=== PATIENT | female | born 1975 | race Caucasian/White ===

== ENCOUNTER 2016-11-13 14:31 | Emergency (ER) | payer OTHER ==
[~2016-11-13] VITALS: Ht 160 cm; Wt 49.9 kg
[~2016-11-13 14:31] MED LIST: ALBUTEROL17 GM INH; ALPRAZOLAM PO; BROMPHED; FAMOTIDINE PO; LAMICTAL PO; NAPROSYN500 MG PO; NAPROXEN PO; NO MEDICATIONS; PHENERGAN PO; PREDNISONE PO; PREMARIN PO; SEROQUEL PO; TUSSIONEX PENN473 ML PO; VOLTAREN50 MG PO; ZOFRANODT SL
== END 2016-11-13 15:29 | disposition home or self-care (01) ==
LOC: SED 14:31
DX: M54.5 Low back pain (principal); G89.29 Other chronic pain; F17.210 Nicotine dependence, cigarettes, uncomplicated; Z79.899 Other long term (current) drug therapy; Z88.6 Allergy status to analgesic agent
CPT/HCPCS: 96372; 99283; J1885

== ENCOUNTER 2016-11-29 10:25 | Emergency (ER) | payer OTHER ==
[~2016-11-29] VITALS: Ht 160 cm; Wt 49.9 kg
--- NOTE | ~2016-11-29 | CR181 ---
[facility] A Service of [facility] & [facility] RADIOLOGY TEXT RESULTS PATIENT: ENID KOROMA LOCATION: CFTX : 77 UNIT #: [id number] AGE: [address]: Kaelyn Durán SEX: F ORDER DR: [id number] [facility] [address] [place], [place] [address] [id number] E MR#: [id number] Acc #: [id number] NAME: ENID KOROMA. : 1975 SEX: F STUDY DATE/TIME: 11/29/2016 11:49 [facility] ROOM: STUDY DESCRIPTION: CR Lumbar Spine 2 or 3 Views Attending Physician: Kaelyn Durán Pa-C Ordering Physician: Kaelyn Durán Pa-C Primary Care Physician: Ayse Branch MEDICAL IMAGING REPORT This report is preliminary unless electronic signature is present EXAM Lumbar spine series 11/29/2016 HISTORY Pain. 2 months worse last 2-3 days. Pain in low and mid back. FINDINGS AP and 2 lateral views of the lumbar spine are presented. Alignment normal. No fracture. Vertebral body heights, intervertebral disc space heights, facet joint relationships normal. Visualized lower thoracic spine and visualized bony pelvis unremarkable. There are surgical chain sutures in the deep pelvis bilaterally. Surgical clips right upper quadrant most likely from cholecystectomy. Bowel gas pattern within normal limits. Dictated by... Jj Raymundo M.D. THIS IS AN ELECTRONICALLY VERIFIED REPORT Jj Raymundo M.D. at 11/30/2016 6:17 PM DUONG/sommer TD: 11/29/2016 18:40 JOB #: [id number] MEDICAL IMAGING REPORT Page 1 of 1 COPY
--- NOTE | ~2016-11-29 | CR243 ---
[facility] A Service of [facility] & [facility] RADIOLOGY TEXT RESULTS PATIENT: ENID KOROMA LOCATION: [place] : 77 UNIT #: [id number] AGE: [address]: Kaelyn Durán SEX: F ORDER DR: [id number] [facility] [address] [place], [place] [address] [id number] E MR#: [id number] Acc #: [id number] NAME: ENID KOROMA. : 1975 SEX: F STUDY DATE/TIME: 11/29/2016 11:49 UNIT: [facility] ROOM: STUDY DESCRIPTION: CR Thoracic Spine 3 Views Attending Physician: Kaelyn Durán Pa-C Ordering Physician: Kaelyn Durán Pa-C Primary Care Physician: Ayse Raza A.P.R.N. MEDICAL IMAGING REPORT This report is preliminary unless electronic signature is present EXAM Thoracic spine series 11/29/2016 1149 hours HISTORY Patient complains of mid and lower back pain for 2 months worsening over the last 2 days. No reported injury. COMPARISON Two-view chest exam 02/23/2016 FINDINGS AP and lateral views of the thoracic spine and lateral swimmer's view were performed. The alignment is normal. Vertebral body and disc heights are normal. There is trace endplate spurring in the mid and lower levels. IMPRESSION No fracture, subluxation or disc height loss. There is trace endplate spurring in the mid and lower thoracic spine. Dictated by... Sammi Pereira M.D. THIS IS AN ELECTRONICALLY VERIFIED REPORT Sammi Pereira M.D. at 11/29/2016 7:05 PM JUVENTINO/diana TD: 11/29/2016 16:41 JOB #: [id number] MEDICAL IMAGING REPORT Page 1 of 1 COPY
== END 2016-11-29 12:49 | disposition home or self-care (01) ==
LOC: CFTX 10:25 → CED 10:25 → CFTX 11:09
DX: G89.29 Other chronic pain (principal); M54.5 Low back pain; Z90.49 Acquired absence of other specified parts of digestive tract; Z90.710 Acquired absence of both cervix and uterus; F17.210 Nicotine dependence, cigarettes, uncomplicated; Z79.899 Other long term (current) drug therapy
CPT/HCPCS: 72072; 72100; 99283